=== PATIENT | male | born 1980 | race Asian ===

== ENCOUNTER 2017-07-18 11:28 | Emergency (ER) | payer SELFPAY ==
[~2017-07-18] VITALS: Ht 162.6 cm; Wt 70.0 kg
[2017-07-18] MEDS ORDERED: IBUPROFEN 600MG TABLET PO ONE (12:15)
[2017-07-18 14:35] VITALS: BP 135/81
== END 2017-07-18 14:58 | disposition home or self-care (01) ==
LOC: ER 11:28
DX: R07.89 Other chest pain (principal); V43.52XA Car driver injured in collision with other type car in traffic accident, initial encounter; Y93.89 Activity, other specified; Y92.89 Other specified places as the place of occurrence of the external cause; Y99.8 Other external cause status
CPT/HCPCS: 93005; 99283